=== PATIENT | male | born 1980 | race African-American/Black ===

== ENCOUNTER 2024-02-11 17:13 | Emergency (ER) | payer SELFPAY ==
[~2024-02-11] VITALS: Ht 177.8 cm; Wt 79.4 kg
[2024-02-11 17:27] VITALS: BP_SYST 126; PULSE 82; RESP 18; TEMP 97.3; O2SAT 99
[2024-02-11] MEDS: ACETAMINOPHEN 500 MG TABLET PO ONE (19:37)
[2024-02-11 21:08] VITALS: BP_SYST 127; PULSE 74; RESP 19; TEMP 97.3; O2SAT 100
== END 2024-02-11 21:08 | disposition home or self-care (01) ==
LOC: SED 17:13
DX: S69.82XA Other specified injuries of left wrist, hand and finger(s), initial encounter (principal); W22.8XXA Striking against or struck by other objects, initial encounter; Y93.89 Activity, other specified; Y92.89 Other specified places as the place of occurrence of the external cause; Y99.8 Other external cause status
CPT/HCPCS: 99284